=== PATIENT | female | born 1995 | race Caucasian/White ===

== ENCOUNTER 2023-11-28 05:53 | Emergency (ER) | payer OTHER ==
[~2023-11-28] VITALS: Ht 157.5 cm; Wt 54.4 kg
[2023-11-28 05:55] VITALS: PULSE 103; RESP 20; TEMP 98.2; O2SAT 100
[2023-11-28] MEDS: IBUPROFEN 600 MG TAB PO STA (06:36)
[2023-11-28] MEDS ORDERED: AMOX TR-K CLV1 EAC2 PO (06:42)
== END 2023-11-28 06:52 | disposition home or self-care (01) ==
LOC: ER 05:57
DX: K02.9 Dental caries, unspecified (principal); F17.200 Nicotine dependence, unspecified, uncomplicated
CPT/HCPCS: 99283